=== PATIENT | female | born 1980 | race Caucasian/White ===

== ENCOUNTER 2022-10-28 22:23 | Emergency (ER) | payer OTHER ==
[~2022-10-28 22:23] MED LIST: LIDOCAINE PATCH REMOVAL MC SCH
[2022-10-28 22:33] VITALS: BP 100/65; PULSE 124; RESP 18; TEMP 102.2; BMI 30.7
[2022-10-28] MEDS ORDERED: ACETAMINOPHEN 1000 MG/100 ML BAG IVPB ONE (22:59)
[2022-10-28] MEDS ORDERED: SODIUM CHLORIDE 1,000 ML IV STA (22:59)
[2022-10-28] MEDS ORDERED: LIDOCAINE 5% TOPICAL PATCH TP ONE (23:06)
[2022-10-28] MEDS ORDERED: ACETAMINOPHEN INJECTION 100 ML IVPB ONE (23:12)
[2022-10-28] MEDS ORDERED: KETOROLAC TROMETHAMINE 15 MG/ML VIAL IVPUSH ONE (23:28)
[2022-10-28] MEDS ORDERED: KETOROLAC TROMETHAMINE 15 MG/ML VIAL ONE (23:28)
[2022-10-28] MEDS ORDERED: LIDOCAINE 5% TOPICAL PATCH ONE (23:53)
[2022-10-29] LABS: BASO % 0.5 % (0-2.0); EOS % 0.2 % (0-4.5); HEMATOCRIT 41.3 % (32.4-45.2); HEMOGLOBIN 13.8 GM/dL (10.7-15.3); LYMPH % 14.3 % (8-40); MCH 30.9 pg (25.7-33.7); MCHC 33.4 g/dl (32.0-36.0); MEAN CELL VOLUME 92.3 fl (80-96); MEAN PLT VOLUME 9.1 fl (7.5-11.1); MONO % 8.8 % (3.8-10.2); NEUT % 76.2 % (42.8-82.8); PLATELET COUNT 281 10^3/uL (134-434); RBC 4.47 M/mm3 (3.60-5.2); RDW 12.9 % (11.6-15.6); WHITE BLOOD COUNT 12.6 K/mm3 (4.0-10.0)
[2022-10-29 00:03] LABS: EPI CELLS 33 /uL (0-25.1); HYALINE CASTS 2 /uL (0-3.1); URINE APPEARANCE CLEAR; URINE BACTERIA 314 /uL (0-1359); URINE BILIRUBIN NEGATIVE (NEGATIVE); URINE COLOR DK YELLOW; URINE GLUCOSE (UA) NEGATIVE (NEGATIVE); URINE KETONE TRACE (NEGATIVE); URINE LEUK ESTERASE TRACE (NEGATIVE); URINE NITRITE NEGATIVE (NEGATIVE); URINE PROTEIN 1+ (NEGATIVE); URINE WBC 39 /uL (0-25.8)
[2022-10-29 00:34] LABS: POTASSIUM 4.2 mmol/L (3.5-5.1)
[2022-10-29 00:35] LABS: ALBUMIN 3.4 g/dl (3.4-5.0); CALCIUM 8.6 mg/dL (8.5-10.1)
[2022-10-29 00:36] LABS: BLOOD UREA NITROGEN 7.4 mg/dL (7-18)
[2022-10-29 00:40] LABS: BILIRUBIN,TOTAL 0.3 mg/dL (0.2-1); TOT PROT 7.7 g/dl (6.4-8.2)
[2022-10-29] MEDS ORDERED: CEPHALEXIN MONOHYDRATE 500 MG CAPSULE (UD) PO ONE (01:03)
[2022-10-29] MEDS ORDERED: CEPHALEXIN MONOHYDRATE 500 MG CAPSULE (UD) ONE (03:09)
[2022-10-29 03:50] LABS: URINE RBC 144.2 /uL (0-23.9)
== END 2022-10-29 03:43 | disposition home or self-care (01) ==
LOC: JER 22:23
PROC: 3E033NZ Introduction of Analgesics, Hypnotics, Sedatives into Peripheral Vein, Percutaneous Approach (ICD-10-PCS; principal; 2022-10-28)
PROC: 3E0333Z Introduction of Anti-inflammatory into Peripheral Vein, Percutaneous Approach (ICD-10-PCS; 2022-10-28)
PROC: 3E0337Z Introduction of Electrolytic and Water Balance Substance into Peripheral Vein, Percutaneous Approach (ICD-10-PCS; 2022-10-28)
DX: J02.0 Streptococcal pharyngitis (principal); R50.9 Fever, unspecified
CPT/HCPCS: 0241U-QW; 36415; 72129-TC; 72132-TC; 80053; 81003; 84703; 85025; 86308; 87040; 87086; 87651; 99285-25; Q9967